=== PATIENT | male | born 1940 | race Caucasian/White ===

== ENCOUNTER 2016-11-24 05:07 | Inpatient (IN) | payer MEDICARE, OTHER ==
[~2016-11-24] VITALS: Ht 170.2 cm; Wt 69.8 kg
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
--- NOTE | ~2016-11-24 | CATH ---
Demographics Patient Name SRIDHAR Frank Gender Male Date of 1940 Age 76 year(s) Patient Number [id number] Date of Study 11/26/2016 Visit Number [id number] Room Number G6[address] [place] [id number] Ht 170.18 cm Wt 78.02 kg Referring Angelo Primary Physician Physician Leyla GANDHI Performing Angelo Secondary Physician Physician Leyla GANDHI Diagnostic Angelo Assisting Physician Physician Leyla GANDHI Interventional Physician Buildings And Grounds Superintendent Physician Findings and Conclusions Diagnostic Findings and Conclusion Calcification involving proximal coronaries. LVEDP 16. No gradient across aortic valve. Severe [address] v CAD. Diagnostic Recommendations CT Surgery consult. Peripheral Findings and Conclusions Normal bilateral renal arteriogram: normal. Peripheral Recommendations Procedure Description The patient was brought to the diagnostic cardiac catheterization-EP laboratory in the fasting, non-sedated state. Informed consent was obtained in the written and verbal form after the risks and benefits were explained. The patient had no further questions and agreed to proceed. The planned puncture-incision site(s) were shaved and prepped with ChloraPrep and draped in the usual sterile manner. Conscious sedation, supplemental oxygen, and pain control medications were delivered by a registered nurse under physician guidance. Surface ECG rhythm, blood pressure measurement, and pulse oximetry were monitored throughout the procedure. Arterial access. The access site was infiltrated with lidocaine. The vessel was entered with the Seldinger technique. A sheath was advanced into the vessel and used for catheter placement. Selective left coronary angiography. A catheter was advanced into the left coronary vessel ostium under Fluoroscopic guidance. Contrast was injected by hand. Images were obtained in multiple projections. Selective right coronary angiography. A catheter was advanced into the right coronary vessel ostium under fluoroscopic guidance. Contrast was injected by hand. Images were obtained in multiple projections. Left heart catheterization. A catheter was advanced across the aortic valve to the left ventricle under fluoroscopic guidance. Resting hemodynamics were obtained. Selective Renal Angiography: Under fluoroscopic guidance a catheter was placed. Contrast was injected and images were obtained. Arterial artery hemostasis was achieved. The patient was transferred to a regular nursing floor via cart accompanied by a nurse. The patient left the laboratory in stable condition. Diagnostic Cath Status: Urgent Procedure Procedure Type Diagnostic procedure:Angiography:, Coronary Angios w/LHC Peripheral Cath Diagnostic Procedure:Renal Angiography:, Right Indications: Abnormal Stress Test and Elevated Troponin. The procedure was explained in detail to the patient. Risks, complications and alternative treatments were reviewed. Written consent was obtained. Medications Reviewed with Patient prior to Procedure. Angiographic Findings Dominance: Right Cardiac Arteries and Lesion Findings LMCA: Diffuse irregularity.Mild diffuse disease. LAD: Lesion on Prox LAD: 80% stenosis . Lesion on 1st Dia% stenosis . LCx: Lesion on Prox CX: 70% stenosis . Lesion on 1st Ob Ingris% stenosis . Lesion on 3rd Ob Ingris% stenosis . RCA: PDA LALY 2 flow. Lesion on Prox RCA: 80% stenosis . Lesion on Mid RCA: 50% stenosis . Lesion on Dist RCA: Proximal subsection.75% stenosis . Lesion on Dist RCA: Distal subsection.99% stenosis . Lesion on 1st RPL: 100% stenosis . Coronary Tree Procedure Data Procedure Date Date: 11/26/2016Start: 03:36 PMEnd: 04:39 PM Entry Locations - Retrograde Percutaneous access was performed through the Right Femoral artery (Primary location). A 6 Fr sheath was inserted. Hemostasis was successfully obtained using Manual Compression. Closure Comments: Pressure held by RT Eleazar for 25 minutes.. Procedure Medications Order and Administration + + +-------+ + !Time !Medication !Dosage !Route ! + + +-------+ + !11/26/2016 03:38 PM !Fentanyl !25 mcg !I.V. ! + + +-------+ + !11/26/2016 03:38 PM !0.9% NaCl ! !I.V. drip ! + + +-------+ + Devices Used - A6 Fr. BS JR 4 Diag. Catheterwas used for:Right coronary angiography. - A6 Fr. BS JL 4 Diag. Catheterwas used for:Left coronary angiography. - A6 Fr. BS JR 4 Diag. Catheterwas used for:Right renal. Contrast Material - Isovue [id number] ml Fluoroscopy Time: Diagnostic: 6:36 minutes. Total: 6:36 minutes. Fluoroscopy Dose: Diagnostic: 1648 mGy. Total: 1648 mGy. Estimated Blood Loss: 20 ml. Medical History Performed Procedures and Imaging Results - Stress testing with SPECT MPIwas performed. Results were: Positive. Risk/Extent of ischemia was: High risk. Allergies - Penicillin. - Sulfa. - Other:(betadine). - Penicillin. - Sulfa. - Other:(Betadine). Risk Factors The patient risk factors include:prior PCI;treated hypercholesterolemia, hypertension, family history of premature CAD, insulin-treated diabetes mellitus, chronic lung disease, last creatinine: 1 mg/dl, creatinine clearance: 67.18 ml/min, dyslipidemia, Current/Recent(w/in 1 year) tobacco use and prior [place] . Admission Data Admission Date: 11/24/2016 Admission Time: 06:11 AM Admit Source: Emergency department Insurance Payors: Medicare. Admission Medications + +------+------+---------+---------+ + + !Medication !Dosage!Times !Last !Last !Administered !Comments ! ! ! !Per !Delivery !Delivery ! ! ! ! ! !Day !Date !Time ! ! ! + +------+------+---------+---------+ + + !Aspirin (any) ! ! ! ! !Yes ! ! + +------+------+---------+---------+ + + !Low Molecular ! ! ! ! ! ! ! !Weight Heparin! ! ! ! ! ! ! !(any) ! ! ! ! ! ! ! + +------+------+---------+---------+ + + !DAVID Inhibitor ! ! ! ! !Yes ! ! !(any) ! ! ! ! ! ! ! + +------+------+---------+---------+ + + !Beta Estefani ! ! ! ! !Yes ! ! !(any) ! ! ! ! ! ! ! + +------+------+---------+---------+ + + Clinical Evaluation Leading to Procedure - The patient's CAD presentation was assessed as: Unstable angina. - The patient's anginal syndrome during the past two weeks was assessed as: Class IV according to the [place] Cardiovascular Society Classification System (CCS). Anti-anginal medications were prescribed during the past two weeks. The medications are: Beta Blockers and Long Acting Nitrates. Hemodynamics Condition: Rest O2 Consumption: Estimated: 221.26Heart Rate: 75 bpm Pressures (mmHg) +-----+ + !Site !Pressure ! +-----+ + !LV !154/24 ,14 ! +-----+ + !LV !163/11 ,18 ! +-----+ + !AO !148/72 (102) ! +-----+ + !LV !166/13 ,17 ! +-----+ + !AO !161/75 (110) ! +-----+ + !AO !169/75 (112) ! +-----+ + Valve Gradients and Areas + +---------+---------+---------+ +---------+ + !Valve !Peak !Mean !Area !Index !Flow !Source ! + +---------+---------+---------+ +---------+ + !Aortic !19 !15 ! ! ! ! ! + +---------+---------+---------+ +---------+ + !Aortic !19 !15 ! ! ! ! ! + +---------+---------+---------+ +---------+ + Shunts Oxygen Values O2 Capacity 152.32 O2 Consumption 221.26 Signatures dtt: Leyla Stephens: 11/26/16 1536 Physician Self Edit
--- NOTE | ~2016-11-24 | ECHO ---
Transthoracic Echocardiography Report (TTE) Demographics Patient Name DARYL WALLER Date of Study 11/24/2016 Patient Number [id number] Visit Number [id number] Date of 1940 Room Number G6202 Gender Male Number Age 76 year(s) Referring Truck Safety Inspector Lucie RVT, RDCS Physician Blanca Physician Interpreting Angelo Mayer MD Dump Grader Physician Supervising Ordering Marielos Fitzgerald MD, MD/MLP Physician Nurse Stress Side Framer Conclusions Contractility Score Summary Hypokinesis of the Mid mayank-septal segment. Summary The estimated left ventricular ejection fraction is 60-65% with normal WM and internal dimension.Mild concentric left ventricular hypertrophy. Mild tricuspid regurgitation by color Doppler. There is mild pulmonary hypertension. The pulmonary pressure (RVSP) is 36 mmHg. Procedure Type of Study TTE procedure:2D Echocardiogram, M-Mode, Doppler , Color Doppler. Procedure Date Date: 11/24/2016 Start: 01:14 PM Study Location: Inpatient Portable Technical Quality: Adequate visualization Indications:Elevated Troponin and Respiratory Arrest. Appropriate Use Criteria: 9 Patient Status: Routine HR: 98 bpm BP: 176/82 mmHg M-Mode/2D Measurements LV Diastolic Dimension: 4 cm LV Systolic Dimension: 2.74 cm LV Septum Diastolic: 1.35 cm LV PW Diastolic: 1.23 cm AO Root Dimension: 3 cm Cardiac Output: 9.57 l/min AV Cusp Separation: 2 cm RV Diastolic Dimension: 3.1 cm LA volume: 32 ml LVOT: 2.4 cm RV Base: 1.81 cm LVOT VTI: 21.6 cm RV Mid: 1.65 cm LV Stroke volume: 97.67 ml TAPSE: 3.09 cm TDI-S': 15.9 cm/s Doppler Measurements AV Peak Velocity: 0.95 m/s MV Peak E-Wave: 0.83 m/s AV Peak Gradient: 3.63 mmHg MV Peak A-Wave: 1.03 m/s AV Mean Gradient: 2 mmHg MV E/A Ratio: 0.81 LVOT Peak Velocity: 0.87 m/s MV P1/2t: 29 msec TR Gradient:33.18 mmHg PV Peak Velocity: 1.06 m/s Estimated RAP:3 mmHg PV Peak Gradient: 4.49 mmHg Estimated RVSP: 36 mmHg Estimated PASP: 36.18 mmHg E' Lateral Velocity: 0.07 m/s A' Lateral Velocity: 0.13 m/s Findings Left Ventricle Mild concentric left ventricular hypertrophy with normal internal dimension,EF and WM. Right Ventricle Normal right ventricle structure and function. Left Atrium Normal left atrial size. Right Atrium Normal right atrial size. Mitral Valve Trivial mitral regurgitation by color Doppler. Aortic Valve Normal aortic valve structure and function. Tricuspid Valve Mild tricuspid regurgitation by color Doppler. There is mild pulmonary hypertension. The pulmonary pressure (RVSP) is 36 mmHg. Pulmonic Valve The pulmonic valve is not well visualized. Pericardial Effusion No evidence of pericardial effusion. Miscellaneous Visualized portions of the aortic root and ascending aorta appear normal in size. Pleural Effusion No evidence of pleural effusion. Contractility Score LV regional wall motion:(0-Non visualized 1-Normal 2-Hypokinesis 3-Akinesis 4-Dyskinesis 5-Aneurysm) Signature dtt: Leyla Stephens dtd: 11/24/16 1314 Physician Self Edit
--- NOTE | ~2016-11-24 | ESTC ---
Cardiac Perfusion Imaging Demographics Patient Name SRIDHAR Frank Gender Male Patient Number [id number] Race Visit Number [id number] [place] [id number] Room Number G6304 Accession Number [id number] Height 67 inches Date of 1940 Weight 172 pounds Physician MD Marielos Fitzgerald MD [facility] Interpreting Angelo Mayer Date of study 11/25/2016 Physician Supervising Kirdebbyan Leyla NM Rowena Heredia MD/WILMAR GANDHI Technologist Ordering Kirdebbyan Leyla Stress Rothenberger RVT, Physician mechanical laboratory technician RDCS Blanca Stress ECG Angelo Mayer Nurse Jonh Frank RN Reading Physician The procedure was explained in detail to the patient. Risks, complications and alternative treatments were reviewed. Written consent was obtained. Medications Reviewed with Patient prior to Procedure. Procedure Admit Source:Emergency department. Procedure Type: Nuclear Stress Test:Pharmacological, Cardiolite Stress Test Procedure Start time: 11/25/2016 10:20 Indications: Elevated cardiac enzymes. Risk Factors The patient risk factors include:prior PCI;Current/Recent(w/in 1 year) tobacco use, treated hypercholesterolemia, family history of premature CAD, insulin treated diabetes mellitus, chronic lung disease, last creatinine: 1 mg/dl, dyslipidemia, prior [place] and creatinine clearance: 67.18 ml/min. Conclusions Summary Flash pulmonary edema with Lexiscan. EKG: No ischemia. Large distal anterior,apical and distal inferior fixed defect most consistent with soft tissue attenuation. LVEF: 45%. Apical akinesia. Stress Protocols Resting ECG RSR. Pre-stress physical exam: Un changed. Predicted HR: 142 bpm ECG Findings No ECG changes suggestive of ischemia. Arrhythmias No rhythm abnormality. Symptoms [place] awful with lexiscan.Developed abdominal pain,worsening SOB,hypoxia,sinus tachycardia,severe systolic HTN most consistent with flash pulmonary edema.Treated with oxygen, IV NTG,IV lasix,IV MS and nebulized bronchodilators.Patient slowly improved over the next 90 mins or so. Stress Interpretation After Lexiscan was administered patient's heart rate and blood pressure had returned to baseline. A few minutes later, the patient complained of stomach pain and nausea and requested to stand up. We helped the patient stand up and Zofran was given. The patient's blood pressure went to 224/108 and he started getting short of breath and agitated. I called respiratory therapy to come and give another breathing treatment. A breathing treatment was administered with no improvement. The patient got more agitated and began to wheeze audibly. His SpO2 dropped down to 34%. Respiratory therapy put the patient on 15 L non rebreather and I gave Lasix, metoprolol, nitro, and morphine. Several doses were given and the patient was monitored closely until he became stable enough to transport to ICU. The patient's SpO2 was holding at 95% to 100% and his SBP was in the 120- 160's when he was transfered. Imaging Results Applied corrections - Motion correction applied High risk findings Summed scores - Summed stress score: 13 - Summed rest score: 17 - Summed difference score: -4 Stress ejection Ejection fraction:45 % EDV :120 ml ESV :66 ml Stroke volume :54 ml LV mass :151 gr LV size:Normal LV systolic function impairment: Mild Imaging Protocols Rest Stress Isotope:Tc99m Sestamibi IV Isotope: Tc99m Sestamibi IV Isotope dose:12.7 mCi Isotope dose:38.3 mCi Date:11/25/2016 09:04 Date:11/25/2016 10:58 Technique: SPECT Technique: Gated Supine SPECT Supine IV remains in place after procedure. Scan Time:45-60 minutes post injection Procedure Medications - Regadenoson (Lexiscan) 0.4 mg IV over 10-15 sec. I.V. 0.4 mg. - m I.V. 4 mg. - Aminophylline 50 mg IV I.V. 125 mg. - Nitroglycerin Drip (25mg/250ml D5W) I.V. drip 5 mcg/min. - Nitroglycerin Drip (25mg/250ml D5W) I.V. drip 10 mcg/min. - Nitroglycerin Drip (25mg/250ml D5W) I.V. drip 15 mcg/min. - Nitroglycerin Drip (25mg/250ml D5W) I.V. drip 20 mcg/min. - Lasix I.V. 20 mg. - Lasix I.V. 20 mg. - Morphine I.V. 1 mg. - Metaprolol I.V. 1 mg. - Metaprolol I.V. 1 mg. - Metaprolol I.V. 1 mg. - Lasix I.V. 20 mg. - Morphine I.V. 1 mg. - Metaprolol I.V. 1 mg. Medications administered per verbal order and read back to physician prior to administration. Medical History Other Previous Procedures + +----+-------+ !Test name !Date!Remarks! + +----+-------+ !Stress testing with SPECT MPI ! ! ! + +----+-------+ Admission Medications + +------+ +--------+-------+---------+ !Name !Dosage!Times per !Start !Stop !Details ! ! ! !day !date !date ! ! + +------+ +--------+-------+---------+ !Aspirin (any) ! ! ! ! ! ! + +------+ +--------+-------+---------+ !Low Molecular Weight Heparin! ! ! ! ! ! !(any) ! ! ! ! ! ! + +------+ +--------+-------+---------+ !DAVID Inhibitor (any) ! ! ! ! ! ! + +------+ +--------+-------+---------+ !Beta Estefani (any) ! ! ! ! ! ! + +------+ +--------+-------+---------+ Admission Data Admission date: 11/24/2016 Admission Time: 06:11 Hospital Status: Inpatient. Signatures dtt: Leyla Stephens dtd: 11/25/16 1020 Physician Self Edit
--- NOTE | ~2016-11-24 | DS ---
PATIENT'S NAME: DARYL WALLER [facility] AGE: 76 Y [address] ROOM: [address] [address] LOCATION: GPCU ADMIT DATE: 11/24/2016 Discharge Summary DISCHARGE DATE: 12/04/2016 FAMILY PHYSICIAN: PHYSICIAN, NO ATTENDING PHYSICIAN: Hamlet Arceo PROCEDURE: Percutaneous coronary intervention x4. DISCHARGE DIAGNOSES: 1. Acute on chronic hypoxic respiratory failure. 2. Severe chronic obstructive pulmonary disease, FEV1 20%. 3. Three-vessel coronary artery disease, status post percutaneous coronary intervention x4. 4. Flash pulmonary edema during stress test. 5. Acute delirium, resolving. 6. Urinary tract infection, treated on 12/04/2016. REASON FOR ADMISSION: The patient collapsed at a hotel in town, was apneic, but did not lose pulse, got artificial respirations from his daughter while waiting for ambulance, and actually I do not believe this was narcotic overdose, although, he is off his pain medications at this time, I think that was more secondary to coronary artery disease, impossible to tell at this point. LABORATORY DATA: Bedside fingerstick glucoses have been anywhere from 61 to 302, but the average has been good. Chemistries: Initial pCO2 was high with PO2 down at 67 and a pH of 7.4, that was corrected with intubation and ventilation quickly and he did not remain on the ventilator long. Last electrolytes: Sodium 142, potassium 4.0 with a normal CO2 and anion gap. BUN and creatinine have returned to normal. Creatinine went up to a max of 1.5, it is as I said that is returning normal at 1.2. His albumin is low at 2.8. Liver function tests were all normal. He had one proBNP on December 02, which was 1221. CRP elevated at 2.94 on November 24. TSH was normal on November 24 at 3.0. Hematology: Last white count was 10.0 with hemoglobin of 11.6. He had a high white count of 12.1 on the . UA done today showed 10-20 white cells with a full field of rbc's and only 0-2 epithelials. No bacteria were noted. PE protocol CT on November 24 showed no evidence of pulmonary embolus, but severe end-stage emphysematous changes bilaterally with right bibasilar opacifications consistent with atelectasis and a small right pleural effusion. Last chest x-ray showed stable appearance on November 30 with bibasilar opacities suggestive of edema or atelectasis. Blood cultures were negative. Respiratory culture showed moderate yeast and grew out Lilly albicans. HOSPITAL COURSE: It was one of up and down improvement with regard to his delirium. His CAD was taken care of definitively, but he will continue to PATIENT'S NAME: DARYL WALLER [facility] AGE: 76 Y [address] ROOM: [id number] [place] [id number] LOCATION: GPCU ADMIT DATE: 11/24/2016 Discharge Summary DISCHARGE DATE: 12/04/2016 FAMILY PHYSICIAN: PHYSICIAN, NO ATTENDING PHYSICIAN: Hamlet Arceo suffer from his severe COPD and his prognosis is guarded secondary to that. I spoke with Dr. Stafford at [facility], who will accept him as a swing bed patient there. Note that this discharge process took greater than 30 minutes. Reference is made to progress notes in the chart today. SOPHY ROSEN MD CCMonika/modl /[id number] CC: Ernst Stafford MD d: 12/05/16 0157 t: 12/06/16 1659, DISCHARGE SUMMARY
--- NOTE | ~2016-11-24 | CON ---
PATIENT'S NAME: DARYL TORRES [facility] AGE: 76 Y [address] ROOM: [id number] [place], [place] [address] LOCATION: CU ADMIT DATE: 11/24/2016 Consultation DISCHARGE DATE: FAMILY PHYSICIAN: PHYSICIAN, NO ATTENDING PHYSICIAN: SARAH RICHARD DATE OF CONSULTATION: 11/24/2016 HISTORY OF PRESENT ILLNESS: Mr. Torres is a 76-year-old male patient who was hospitalized on the 11/24/2016 with acute respiratory failure. He woke up in a hotel room where he was staying with his and daughter for a function. He woke up and had trouble breathing. He increased his nocturnal oxygen level from 1 L to 2 L and shortly after that, stopped breathing. His daughter started to give him some resuscitation in the form of qllgl-em-zbnti respiration. His pulse was never lost. The project manager process development arrived and they were also able to tell that his blood pressure and pulse were okay and he was transported to the emergency room. He was initially intubated and later extubated. His troponins are up a little bit which is the main reason for consultation. At least, he has a combination of COPD and because of the retention of pCO2, possible additional drug overdose effect were also implicated. His echo showed normal ejection fraction with mild LVH. His proBNP was elevated. The patient has generally been somewhat short of breath and has been in functional class III lately. He has not had any chest pain per se. There is no history of syncope, lightheaded or ankle swelling. He denies any palpitations. There is no prior history of congestive heart failure, atrial fibrillation, rheumatic fever or heart murmur. The patient has history of hypertension, type 2 diabetes, elevated cholesterol, and he is an ex-smoker. There is no family history of premature coronary artery disease that he knows of. CURRENT MEDICATIONS: His current list of medications are: 1. Aspirin 81 mg a day. 2. Ertapenem 100 mg IV once a day. 3. Levofloxacin 150 mg a day IV. 4. Ipratropium bromide. 5. Isosorbide dinitrate 10 mg t.i.d. 6. Gabapentin 300 t.i.d. 7. Guaifenesin 600 b.i.d. 8. Metoprolol 50 b.i.d. 9. Insulin. 10. Bupropion 150 b.i.d. PATIENT'S NAME: DARYL TORRES [facility] AGE: 76 Y [address] ROOM: [id number] [place], [place] [address] LOCATION: [facility] ADMIT DATE: 11/24/2016 Consultation DISCHARGE DATE: FAMILY PHYSICIAN: PHYSICIAN, NO ATTENDING PHYSICIAN: SARAH RICHARD 11. Lisinopril 2.5 daily. 12. Levothyroxine. 13. Famotidine. 14. Cholecalciferol. 15. Atorvastatin 40 mg a day. 16. Enoxaparin 40 mg a day. 17. Fentanyl. ALLERGIES: PENICILLIN AND SULFA. PAST MEDICAL HISTORY: 1. COPD. 2. History of 2 MIs in the past with 1994 and 1998. He had a stent to his coronary artery at that time. 3. History of chronic hypoxic respiratory failure. 4. History of tobacco abuse. 5. Fibromyalgia. 6. Hypothyroidism. 7. Rotator cuff tear. 8. Right shoulder surgery. 9. Pneumonia. 10. DJD. 11. Appendectomy. 12. Multiple fractures. SOCIAL HISTORY: The patient is . He denies abusing alcohol. He is not currently smoking. His appetite and weight are stable. Sleep is fair. FAMILY HISTORY: No premature coronary artery disease. REVIEW OF SYSTEMS: 1. Generalized aches and pains. 2. Cough with wheezing. 3. Difficulty with urination off and on. 4. No history of GI or bleed. PHYSICAL EXAMINATION: VITAL SIGNS: On examination, his blood pressure is 130/80, heart rate is in the 60s and 70s regular, respiration is 18, afebrile. HEENT: Normal. NECK: Supple with no JVD, thyromegaly, lymphadenopathy or carotid bruit. HEART: PMI is not well located. First and second heart sounds are regular. PATIENT'S NAME: DARYL TORRES [facility] AGE: 76 Y [address] [place]OM: [id number] [address] LOCATION: GICU ADMIT DATE: 11/24/2016 Consultation DISCHARGE DATE: FAMILY PHYSICIAN: PHYSICIAN, NO ATTENDING PHYSICIAN: SARAH RICHARD There are no added sounds or murmurs. CHEST: Revealed some wheezing scattered all through the lung mendoza. He has some crackles in the bases as well. ABDOMEN: Obese, soft. EXTREMITIES: Reveal no edema. CENTRAL NERVOUS SYSTEM: Intact. ASSESSMENT: 1. Pulmonary edema. 2. Chronic obstructive pulmonary disease. 3. Ftu-ZD-wetkrmmey myocardial infarction this time. 4. History of 2 myocardial infarctions in the past and history of percutaneous coronary intervention in the past. 5. Type 2 diabetes. 6. Normal renal function. RECOMMENDATION: Lexiscan/Cardiolite study first and then followup. Again, I appreciate this opportunity to participate in the care of Mr. Torres. MD BIRDIE JOY/ricky /[id number] d: 11/26/16 0001 t: 11/27/16 1226, CONSULTATION REPORT
--- NOTE | ~2016-11-24 | HP ---
PATIENT'S NAME: DARYL WALLER [facility] AGE: 76 Y [address] ROOM: [place] [address] LOCATION: GICU ADMIT DATE: 11/24/2016 History & Physical DISCHARGE DATE: FAMILY PHYSICIAN: PHYSICIAN, NO ATTENDING PHYSICIAN: SARAH RICHARD DATE OF SERVICE: CHIEF COMPLAINT: Respiratory arrest. HISTORY OF PRESENT ILLNESS: A 76-year-old gentleman with a past medical history of chronic obstructive pulmonary disease, on 1 L of oxygen at home, history of fibromyalgia on unknown dose of morphine as well as breakthrough pain, was in a motel with his . He woke up this morning to go to the bathroom and he complained that he is having trouble breathing. EMS was called and before EMS could arrive, he stopped breathing and went unresponsive. His daughter tried to do mouth-to- mouth breathing and they had a pulse all the time. EMS found him in to be respiratory arrest, and intubated in the field and brought to the emergency department. On my encounter, he is intubated 1 dose of 0.2 mg of Narcan has been given. He is awake and he is following commands. Per daughter, his only complaint was this trouble breathing last night. He did not complain of any chest pain, any shortness of breath, any headache, any trouble with the eyes, any abdominal pain, but did endorse that he has been having diarrhea for past couple of days. He did not endorse having leg swelling in the past couple of days as well. REVIEW OF SYSTEMS: All other systems were reviewed and were negative except what is mentioned in the HPI. ALLERGIES: THE PATIENT IS ALLERGIC TO PENICILLIN, SULFA, AND BETADINE. PAST MEDICAL HISTORY: COPD on 1 L of oxygen at home, hypertension, insulin-dependent diabetes mellitus, coronary artery disease, fibromyalgia, on heavy doses of narcotics. MEDICATIONS: Medications are being reconciled right now. SOCIAL HISTORY: Lifelong smoker; currently, smokes. PATIENT'S NAME: DARYL WALLER [facility] AGE: 76 Y [address] ROOM: [place] [address] LOCATION: GICU ADMIT DATE: 11/24/2016 History & Physical DISCHARGE DATE: FAMILY PHYSICIAN: PHYSICIAN, NO ATTENDING PHYSICIAN: SARAH RICHARD FAMILY HISTORY: Reviewed and were irrelevant to the presenting problem. PHYSICAL EXAMINATION: VITAL SIGNS: Blood pressure 162/114, respiratory rate of 19, satting 99%, and heart rate of 94. GENERAL: In mild acute distress due to intubation, wakes up to the commands. Following commands. No weakness noted in any of the extremities. HEENT: Head: Atraumatic, normocephalic. Eyes: Nonicteric. No pallor. Oropharynx: Moist mucous membranes. CARDIOVASCULAR: S1, S2. No murmurs, gallops, rubs. LUNGS: Clear to auscultation bilaterally. ABDOMEN: Soft, nontender, nondistended. Bowel sounds present. EXTREMITIES: No clubbing, cyanosis, or edema. PSYCHIATRIC: Cannot be assessed at this point. ENDOCRINE: No cushingoid features or myxedema noted. LYMPHATICS: No lymphadenopathy or lymphangitis noted. MUSCULOSKELETAL: No muscle tenderness or joint swelling noted. LABORATORY DATA: EKG done in the emergency department showed sinus rhythm without any acute ST- T wave changes. Q-waves are present in V2 and V3. Troponin 1st set has been negative. ABG initially done in the emergency department showed respiratory acidosis with a pH of 7.25 and a pCO2 of 68 and that was on intubation. Repeat ABG showed improved pH of 7.33, pCO2 of 58, pO2 of 74, FiO2 of 40. Procalcitonin level is negative. CBC and CMP were unremarkable. Lactate was elevated at 4.5. D-dimer was elevated at 1.[address] of the chest with a PE protocol was done, which per my read does not show any big pulmonary emboli to explain this. There is no significant infiltrate and consolidation noted. ASSESSMENT: 1. Respiratory arrest, secondary to drug overdose. 2. Narcotic overdose. 3. Bpgat-fk-zvtkqqz hypoxic and hypercapnic respiratory failure. 4. Chronic obstructive pulmonary disease. 5. Hypertension. 6. Coronary artery disease. 7. Insulin-dependent diabetes mellitus. PLAN: We are going to admit this patient to the ICU. Currently, he is mechanically ventilated. We gave him 1 dose of Narcan, which did increase his alertness as well as the respiratory rate more than the ventilator. His ABGs have improved. We will stop all the sedation and continue with the assessment for the extubation. We will repeat the ABG at this point. No antibiotics are PATIENT'S NAME: DARYL WALLER [facility] AGE: 76 Y [address] ROOM: [place] [address] LOCATION: [facility] ADMIT DATE: 11/24/2016 History & Physical DISCHARGE DATE: FAMILY PHYSICIAN: PHYSICIAN, NO ATTENDING PHYSICIAN: SARAH RICHARD indicated at this point. We will get a urine drug screen. Gave him 1 L of IV bolus. Given the normal neurological exam and without any overt weakness, we will not do a CAT scan of the head at this point. Mild sliding scale insulin. We will get HbA1c, p.r.n. antihypertensives for blood pressure. He is full code. DVT prophylaxis with Lovenox. We will follow this patient. MD DILAN PEREZ/ricky /[id number] D: [id number] T: [id number] HISTORY & PHYSICAL
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
--- NOTE | ~2016-11-24 | PUL ---
PATIENT'S NAME: DARYL WALLER [facility] AGE: 76 Y [address] ROOM: [place] [address] LOCATION: GPCU ADMIT DATE: 11/24/2016 Pulmonary DISCHARGE DATE: FAMILY PHYSICIAN: PHYSICIAN, NO ATTENDING PHYSICIAN: SARAH RICHARD NAME OF PROCEDURE: Bedside Spirometry DATE OF PROCEDURE: November 27, 2016 TECH: TBemily, LASERIST REASON FOR EXAM: Pre-surgical evaluation PROCEDURES PREFORMED: Spirometry with bronchodilator assessment RESULTS: Spirometry shows the pre bronchodilator FVC was 0.67 liters which is 19% of predicted. And the post bronchodilator FVC was 0.64 liters. The pre bronchodilator FEV1 was 0.52 liters which is 20% of predicted, and the post bronchodilator FEV1 was 0.64 liters which is 25% of predicted. FEV1/FVC ratio was 77% or 107% of predicted. PHYSICIAN INTERPRETATION: The flow volume loop pattern suggest restrictive pattern. The above data under flow volume loop suggests restrictive pattern further examination with measurement of the lung volumes would be recommended. There was no significant change following an inhaled bronchodilator as suggested by the post bronchodilator measurement. MD DENG FARRAR/ghassan /[id number] dtt: 11/29/16 1646 , JAYLEN LOPEZ dtd: 11/29/16 0954
--- NOTE | ~2016-11-24 | CATH ---
Cardiac Interventional Report Demographics Patient Name SRIDHAR Frank Gender Male Date of 1940 Age 76 year(s) Patient Number [id number] Date of Study 11/28/2016 Visit Number [id number] Room Number G6[address] [place] [id number] Ht 170.18 cm Wt 78.02 kg Referring Marielos Fitzgerald Primary Physician Physician Performing Angelo Secondary Physician Physician Leyla GANDHI Diagnostic Assisting Physician Physician Interventional Angelo Physician [employer] Salesperson Physician Leyla GANDHI Findings and Conclusions Interventional Findings and Conclusion LAD prox 75-80% to 0% with LALY 3 flow.One PIA. LCx IFR 0.94 RCA 3 PIA proximal mid and distal. LALY 3 flow distal, initally LALY 1-2 flow Interventional Recommendations Routine post-coronary intervention care. Procedure Description The patient was brought to the diagnostic cardiac catheterization-EP laboratory in the fasting, non-sedated state. Informed consent was obtained for a planned PCI in the written and verbal form after the risks and benefits were explained. The patient had no further questions and agreed to proceed. The planned puncture-incision site(s) were shaved and prepped with ChloraPrep. After a three minute dry time the patient was draped in the usual sterile manner. Conscious sedation and pain control medications were delivered by a registered nurse under physician guidance. Surface ECG rhythm, blood pressure measurement, supplemental oxygen, and pulse oximetry were monitored throughout the procedure. Arterial access. The access site was infiltrated with lidocaine. The vessel was entered with the Seldinger technique. A sheath was advanced into the vessel and used for catheter placement. Stent Placement: A guiding catheter was used to intubate the vessel. A 0.14 wire was used to cross the lesion. A Drug Eluting Stent was placed in the LAD Post placement angiograms were performed. FFR measurement was performed of the left circumflex. The vessel was entered with a guiding catheter. The FFR wire was normalized and then advanced across the lesion. Maximum hyperemia was achieved using adenosine. Stent Placement: A guiding catheter was used to intubate the vessel. A 0.14 wire was used to cross the lesion. A Drug Eluting Stent was placed in the distal RCA. Post placement angiograms were performed. Stent Placement: A guiding catheter was used to intubate the vessel. A 0.14 wire was used to cross the lesion. A Drug Eluting Stent was placed in the distal RCA just proximal and overlapping with the most distal stent. Post placement angiograms were performed. Stent Placement: A guiding catheter was used to intubate the vessel. A 0.14 wire was used to cross the lesion. A Drug Eluting Stent was placed in the proximal RCA. Post placement angiograms were performed. Hemostasis: The sheath(s) was removed. Perclose(s) were tied and hemostasis was achieved. The patient was transferred to the nursing floor with continuous monitoring via cart accompanied by a nurse. The patient left the laboratory in stable condition. Interventional Cath Status: Urgent Procedure Procedure Type PCI procedure:Drug Eluting Coronary Stent:, LAD, RCA, Additional Imaging:, FFR/iFR:, Initial Vessel Indications: Respiratory Arrest and Unstable angina. The procedure was explained in detail to the patient. Risks, complications and alternative treatments were reviewed. Written consent was obtained. Medications Reviewed with Patient prior to Procedure. Angiographic Findings Dominance: Right Cardiac Arteries and Lesion Findings LAD: Lesion on Prox LAD: 80% stenosis reduced to 0%. Pre procedure LALY II flow was noted. Post Procedure LALY III flow was present. The guidewire cross was successful.The lesion was diagnosed as a high risk lesion.Culprit lesion. Devices used - Luge Wire .014 x 182. Number of passes: 1. - Emerge Balloon 3.0 x 8. 1 inflation(s) to a max pressure of: 18 manju. - Promus Premier 4.0 x 12 Stent. 1 inflation(s) to a max pressure of: 12 manju. LCx: Lesion on Mid CX: FFR + + + + !FFR !Stage/Medication !Dosage ! + + + + !0.94 ! ! ! + + + + Devices used - PlanStanrata Pressure Wire. Number of passes: 1. RCA: Lesion on Dist RCA: 99% stenosis reduced to 0%. Pre procedure LALY 0 flow was noted. Post Procedure LALY III flow was present. The guidewire cross was successful.The lesion was diagnosed as a high risk lesion.Culprit lesion. Devices used - Promus Premier 3.0 x 12 Stent. 1 inflation(s) to a max pressure of: 16 manju. Lesion on Mid RCA: 75% stenosis reduced to 0%. Pre procedure LALY II flow was noted. Post Procedure LALY III flow was present. The guidewire cross was successful. Devices used - Fielder XT 190 cm. Number of passes: 1. - Emerge Balloon 2.5 x 15. 2 inflation(s) to a max pressure of: 6 manju. - Promus Premier 2.5 x 24 Stent. 1 inflation(s) to a max pressure of: 15 manju. - Promus Premier 2.75 x 16 Stent. 1 inflation(s) to a max pressure of: 17 manju. Lesion on Prox RCA: 80% stenosis reduced to 0%. Pre procedure LALY II flow was noted. Post Procedure LALY III flow was present. The guidewire cross was successful.The lesion was diagnosed as a high risk lesion. Coronary Tree Procedure Data Procedure Date Date: 11/28/2016Start: 04:25 PMEnd: 06:24 PM Entry Locations - Retrograde Percutaneous access was performed through the Right Femoral artery (Primary location). A 7 Fr sheath was inserted. Hemostasis was successfully obtained using Perclose ProGlide (Liu). Closure Comments: By Teresita Chowdhury. Procedure Medications Order and Administration + + + + + !Time !Medication !Dosage !Route ! + + + + + !11/28/2016 04:15 PM !Oxygen !3 l/min !NC ! + + + + + !11/28/2016 04:20 PM !Oxygen !2 l/min !NC ! + + + + + !11/28/2016 04:22 PM !Oxygen !2 l/min !NC ! + + + + + !11/28/2016 04:26 PM !Versed !1 mg !I.V. ! + + + + + !11/28/2016 04:26 PM !Fentanyl !25 mcg !I.V. ! + + + + + 11/28/2016 04:32 PM !Heparin (ACC_3) !7500 units !I.V. bolus ! + + + + + 11/28/2016 04:37 PM !Aggrastat (Tirofiban) !1.875 mg !I.V. bolus ! + + + + 11/28/2016 04:40 PM !Aggrastat (Tirofiban) !0.15 mcg/kg/min !I.V. drip ! + + + + + 11/28/2016 04:41 PM !Fentanyl !25 mcg !I.V. ! + + + + + 11/28/2016 05:15 PM !Nitroglycerin !5 mcg/min ! ! + + + + + !11/28/2016 05:26 PM !Nitroglycerin !10 mcg/min !I.V. drip ! + + + + + !11/28/2016 05:30 PM !Oxygen !3 l/min !Mask ! + + + + + !11/28/2016 05:32 PM !Oxygen !5 l/min !Mask ! + + + + + 11/28/2016 05:37 PM !Oxygen !2 l/min !NC ! + + + + + !11/28/2016 05:39 PM !Nitroglycerin !15 mcg/min !I.V. drip ! + + + + + !11/28/2016 05:44 PM !Plavix (ACC_8) !600 mg !P.O. ! + + + + + !11/28/2016 05:50 PM !Baby Aspirin (ACC_4) !324 mg !P.O. ! + + + + + Devices Used - A6 Fr. EBU 3.5 Guide Catheterwas used for:LAD Intervention. - A6 Fr. AL .75 JJ Guide Catheterwas used for:RCA Intervention. Contrast Material - Isovue 317906 ml Fluoroscopy Time: Diagnostic: 21:18 minutes. Total: 21:18 minutes. Fluoroscopy Dose: Diagnostic: 4027 mGy. Total: 4027 mGy. Estimated Blood Loss: 10 ml. Additional [facility] PCI Information PCI Indication:PCI for high risk Non-STEMI or unstable angina. Medical History Performed Procedures and Imaging Results - Stress testing with SPECT MPIwas performed. Results were: Positive. Risk/Extent of ischemia was: High risk. Allergies - Penicillin. - Sulfa. - Other:(betadine). - Penicillin. - Sulfa. - Other:(Betadine). Risk Factors The patient risk factors include:prior PCI;treated hypercholesterolemia, hypertension, family history of premature CAD, insulin-treated diabetes mellitus, chronic lung disease, last creatinine: 1 mg/dl, creatinine clearance: 67.18 ml/min, dyslipidemia, Current/Recent(w/in 1 year) tobacco use and prior [place] . Admission Data Admission Date: 11/24/2016 Admission Time: 06:11 AM Admit Source: Emergency department Insurance Payors: Medicare. Admission Medications + +------+------+---------+---------+ + + !Medication !Dosage!Times !Last !Last !Administered !Comments ! ! ! !Per !Delivery !Delivery ! ! ! ! ! !Day !Date !Time ! ! ! + +------+------+---------+---------+ + + !Aspirin (any) ! ! ! ! !Yes ! ! + +------+------+---------+---------+ + + !Low Molecular ! ! ! ! ! ! ! !Weight Heparin! ! ! ! ! ! ! !(any) ! ! ! ! ! ! ! + +------+------+---------+---------+ + + !DAVID Inhibitor ! ! ! ! !Yes ! ! !(any) ! ! ! ! ! ! ! + +------+------+---------+---------+ + + !Beta Estefani ! ! ! ! !Yes ! ! !(any) ! ! ! ! ! ! ! + +------+------+---------+---------+ + + Clinical Evaluation Leading to Procedure - The patient's CAD presentation was assessed as: Unstable angina. - The patient's anginal syndrome during the past two weeks was assessed as: Class IV according to the [place] Cardiovascular Society Classification System (CCS). Anti-anginal medications were prescribed during the past two weeks. The medications are: Beta Blockers and Long Acting Nitrates. Hemodynamics Condition: Rest O2 Consumption: Estimated: 226.89Heart Rate: 83 bpm Pressures (mmHg) +-----+ + !Site !Pressure ! +-----+ + !AO !150/68 (99) ! +-----+ + Shunts Oxygen Values O2 Capacity 148.24 O2 Consumption 226.89 Discharge Data Discharge Date: 12/04/2016 Hospital Status: Inpatient Signatures dtt: Leyla Stephens dtlinh: 11/28/16 1625 Physician Self Edit
[2016-11-24 05:37] LABS: BASOPHIL % 0.4 %; EOSINOPHIL # 0.2 K/uL (0.0-0.5); EOSINOPHIL % 1.7 %; HEMATOCRIT 40.4 % (37.0-53.0); HEMOGLOBIN 12.8 g/dL (11.0-16.0); IMMATURE GRANULOCYTE # 0.1 K/uL (0.0-0.3); IMMATURE GRANULOCYTE % 0.8 %; LYMPHOCYTE # 3.1 K/uL (0.8-4.0); LYMPHOCYTE % 30.6 %; MCH 30.3 pg (27.0-34.0); MCHC 31.7 gm/dL (32.0-36.5); MCV 95.7 fl (83.0-98.0); MONOCYTE # 0.7 K/uL (0.0-1.0); MONOCYTE % 6.4 %; MPV 9.6 fl (9.4-12.4); NEUTROPHIL # (ANC) 6.2 K/uL (1.4-9.0); NEUTROPHIL % 60.1 %; NRBC % 0 /100WBC (0-0.00); PLATELET COUNT 293 K/uL (150-450); RBC 4.22 M/uL (3.50-5.50); RDW-CV 14.2 % (11.9-14.6); WBC 10.3 K/uL (4.0-11.0)
[2016-11-24 06:04] LABS: INR - (THERAPEUTIC) 1.01 (0.92-1.07); PROTIME 10.6 SECONDS (9.8-11.4); PTT 29 SECONDS (25-32)
[2016-11-24 06:16] LABS: ALBUMIN 2.8 gm/dL (3.5-5.0); ALK PHOS 100 IU/L (33-138); ALT 22 IU/L (12-78); ANION GAP 13.7 (10.0-19.0); AST 20 IU/L (10-40); BLOOD UREA NITROGEN 13 mg/dL (6-24); CALCIUM 8.3 mg/dL (8.5-10.5); CHLORIDE 106 mMol/L (96-110); CO2 26 mMol/L (22-32); CPK 63 IU/L (35-332); CREATININE 1.2 mg/dL (0.6-1.3); POTASSIUM 4.7 mMol/L (3.7-5.1); SODIUM 141 mMol/L (135-145); TOTAL BILIRUBIN 0.3 mg/dL (0.0-1.5); TOTAL PROTEIN 6.3 g/dL (6.0-8.4)
[2016-11-24 06:40] LABS: BICARBONATE 29.8 mmol/L (18.0-23.0); PCO2 68 mmHg (35-45); PO2 241 mmHg (80-90)
[2016-11-24 08:37] LABS: BICARBONATE 30.6 mmol/L (18.0-23.0); LACTATE 1.1 mEq/L (0.50-1.60); PCO2 58 mmHg (35-45)
[2016-11-24 08:38] LABS: PO2 74 mmHg (80-90)
[2016-11-24 09:18] LABS: BILIRUBIN URINE NEGATIVE (NEGATIVE); BLOOD URINE 25 /UL (NEGATIVE); COLOR URINE YELLOW (YELLOW); GLUCOSE URINE 100 mg/dL (NEGATIVE); KETONE URINE NEGATIVE (NEGATIVE); LEUKOCYTES URINE 25 /UL (NEGATIVE); NITRITE URINE NEGATIVE (NEGATIVE); PH URINE 6.5 (4.0-8.0); PROTEIN URINE 15 mg/dL (NEGATIVE); TURBIDITY URINE CLEAR (CLEAR); UROBILINOGEN URINE NORMAL (NORMAL)
[2016-11-24 09:38] LABS: BACTERIA URINE NEGATIVE (NEGATIVE); EPITHELIAL URINE 0-2 #/HPF (NEGATIVE)
[2016-11-24 09:43] LABS: COCAINE NEGATIVE (NEGATIVE); OPIATES POSITIVE (NEGATIVE)
[2016-11-24 09:46] LABS: AMPHETAMINE NEGATIVE (NEGATIVE); BARBITURATE NEGATIVE (NEGATIVE)
[2016-11-24] MEDS ORDERED: TYLENOL325 MG PO (10:09)
[2016-11-24] MEDS ORDERED: PROVENTIL OR V6.7 GM INH (10:09)
[2016-11-24] MEDS ORDERED: ASPIRIN (CHILDR81 MG PO (10:10)
[2016-11-24] MEDS ORDERED: LIPITOR10 MG PO (10:10)
[2016-11-24] MEDS ORDERED: NEURONTIN300 MG PO (10:42)
[2016-11-24] MEDS ORDERED: WELLBUTRIN SR150 MG PO (10:42)
[2016-11-24] MEDS ORDERED: LASIX20 MG PO (10:42)
[2016-11-24] MEDS ORDERED: ALLFEN400 MG PO (10:48)
[2016-11-24] MEDS ORDERED: ISORDIL10 MG PO (10:49)
[2016-11-24] MEDS ORDERED: LEVEMIR100 UNIT/1 SUB-Q (10:52)
[2016-11-24] MEDS ORDERED: LEVOFLOXACIN PO (10:53)
[2016-11-24] MEDS ORDERED: LEVOTHROID (S137 MCG PO (10:54)
[2016-11-24] MEDS ORDERED: PRINIVIL (ZESTRI5 MG PO (10:56)
[2016-11-24] MEDS ORDERED: MAGNESIUM OXID420 MG PO (10:57)
[2016-11-24] MEDS ORDERED: GLUCOPHAGE850 MG PO (10:59)
[2016-11-24] MEDS ORDERED: LOPRESSOR50 MG PO (10:59)
[2016-11-24] MEDS ORDERED: MORPHINE 15MG I15 MG PO (11:02)
[2016-11-24] MEDS ORDERED: NARCAN4 MG INH (11:03)
[2016-11-24] MEDS ORDERED: NICORETTE 2 MG2 MG PO (11:04)
[2016-11-24] MEDS ORDERED: NITROGLYCERIN0.4 MG SL (11:06)
[2016-11-24] MEDS ORDERED: NOVOLOG100 UNIT/M SUB-Q ×2 (11:09→11:10)
[2016-11-24] MEDS ORDERED: NOVOLIN-R100 UNIT/M SUB-Q (11:10)
[2016-11-24] MEDS ORDERED: OXYGEN M-15 INH (11:11)
[2016-11-24] MEDS ORDERED: LYRICA 150MG C150 MG PO (11:12)
[2016-11-24] MEDS ORDERED: ZANTAC (NON-FO150 MG PO (11:14)
[2016-11-24] MEDS ORDERED: SENNA S TABLET1 EACH PO (11:15)
[2016-11-24] MEDS ORDERED: SPIRIVA HANDIHA1 KIT INH (11:16)
[2016-11-24] MEDS ORDERED: SYMBICORT 16010.2 GM INH (11:16)
[2016-11-24] MEDS ORDERED: THERA GESIC CRE TOP (11:18)
[2016-11-24] MEDS ORDERED: VITAMIN B-12500 MCG PO (11:19)
[2016-11-24] MEDS ORDERED: VITAMIN D-32000 UNI1 PO (11:20)
[2016-11-24 12:04] LABS: BICARBONATE 31.9 mmol/L (18.0-23.0); PCO2 54 mmHg (35-45); PO2 83 mmHg (80-90)
[2016-11-25 07:38] LABS: ANION GAP 10.3 (10.0-19.0); CALCIUM 8.4 mg/dL (8.5-10.5); POTASSIUM 4.3 mMol/L (3.7-5.1)
[2016-11-25 08:13] LABS: BASOPHIL % 0.3 %; EOSINOPHIL % 0.2 %; HEMATOCRIT 35.8 % (37.0-53.0); HEMOGLOBIN 11.7 g/dL (11.0-16.0); IMMATURE GRANULOCYTE % 0.3 %; LYMPHOCYTE # 1.9 K/uL (0.8-4.0); LYMPHOCYTE % 16.1 %; MCH 30.7 pg (27.0-34.0); MCHC 32.7 gm/dL (32.0-36.5); MONOCYTE # 0.8 K/uL (0.0-1.0); MONOCYTE % 6.5 %; MPV 10.3 fl (9.4-12.4); NEUTROPHIL # (ANC) 9.2 K/uL (1.4-9.0); NEUTROPHIL % 76.6 %; NRBC % 0 /100WBC (0-0.00); PLATELET COUNT 235 K/uL (150-450); RBC 3.81 M/uL (3.50-5.50); RDW-CV 14.3 % (11.9-14.6)
[2016-11-25 12:41] LABS: BICARBONATE 31.7 mmol/L (18.0-23.0)
[2016-11-25 12:47] LABS: PCO2 66 mmHg (35-45); PO2 109 mmHg (80-90)
[2016-11-25 15:48] LABS: BICARBONATE 34.7 mmol/L (18.0-23.0); PCO2 56 mmHg (35-45)
[2016-11-25 15:49] LABS: PO2 66 mmHg (80-90)
[2016-11-26 04:13] LABS: BICARBONATE 35.9 mmol/L (18.0-23.0); PCO2 58 mmHg (35-45); PO2 67 mmHg (80-90)
[2016-11-26 05:51] LABS: BASOPHIL # 0.1 K/uL (0.0-0.2); BASOPHIL % 0.4 %; EOSINOPHIL # 0.1 K/uL (0.0-0.5); EOSINOPHIL % 1.2 %; HEMATOCRIT 35.2 % (37.0-53.0); HEMOGLOBIN 11.2 g/dL (11.0-16.0); IMMATURE GRANULOCYTE # 0.1 K/uL (0.0-0.3); IMMATURE GRANULOCYTE % 0.5 %; LYMPHOCYTE # 2.4 K/uL (0.8-4.0); LYMPHOCYTE % 21.3 %; MCH 29.9 pg (27.0-34.0); MCHC 31.8 gm/dL (32.0-36.5); MCV 94.1 fl (83.0-98.0); MONOCYTE # 0.8 K/uL (0.0-1.0); MONOCYTE % 7.3 %; MPV 9.5 fl (9.4-12.4); NEUTROPHIL # (ANC) 7.8 K/uL (1.4-9.0); NEUTROPHIL % 69.3 %; NRBC % 0 /100WBC (0-0.00); PLATELET COUNT 223 K/uL (150-450); RBC 3.74 M/uL (3.50-5.50); RDW-CV 14.4 % (11.9-14.6); WBC 11.3 K/uL (4.0-11.0)
[2016-11-26 06:08] LABS: ANION GAP 9.1 (10.0-19.0); CALCIUM 8.7 mg/dL (8.5-10.5); POTASSIUM 4.1 mMol/L (3.7-5.1)
[2016-11-27 05:47] LABS: BASOPHIL % 0.3 %; EOSINOPHIL # 0.2 K/uL (0.0-0.5); EOSINOPHIL % 1.6 %; HEMATOCRIT 34.1 % (37.0-53.0); HEMOGLOBIN 10.9 g/dL (11.0-16.0); IMMATURE GRANULOCYTE # 0.1 K/uL (0.0-0.3); IMMATURE GRANULOCYTE % 0.5 %; LYMPHOCYTE # 1.9 K/uL (0.8-4.0); LYMPHOCYTE % 18.6 %; MCH 29.9 pg (27.0-34.0); MCV 93.4 fl (83.0-98.0); MONOCYTE # 0.8 K/uL (0.0-1.0); MONOCYTE % 7.8 %; MPV 9.6 fl (9.4-12.4); NEUTROPHIL # (ANC) 7.1 K/uL (1.4-9.0); NEUTROPHIL % 71.2 %; NRBC % 0 /100WBC (0-0.00); PLATELET COUNT 215 K/uL (150-450); RBC 3.65 M/uL (3.50-5.50); RDW-CV 14.2 % (11.9-14.6)
[2016-11-27 05:58] LABS: CALCIUM 8.6 mg/dL (8.5-10.5); CREATININE 0.8 mg/dL (0.6-1.3)
[2016-11-28 04:24] LABS: ANION GAP 10.1 (10.0-19.0); CALCIUM 8.3 mg/dL (8.5-10.5); POTASSIUM 4.1 mMol/L (3.7-5.1)
[2016-11-28 22:09] LABS: BASOPHIL % 0.3 %; EOSINOPHIL # 0.1 K/uL (0.0-0.5); HEMATOCRIT 33.9 % (37.0-53.0); HEMOGLOBIN 11.1 g/dL (11.0-16.0); IMMATURE GRANULOCYTE # 0.1 K/uL (0.0-0.3); IMMATURE GRANULOCYTE % 0.6 %; LYMPHOCYTE # 1.7 K/uL (0.8-4.0); LYMPHOCYTE % 19.4 %; MCH 30.2 pg (27.0-34.0); MCHC 32.7 gm/dL (32.0-36.5); MCV 92.4 fl (83.0-98.0); MONOCYTE # 0.7 K/uL (0.0-1.0); MONOCYTE % 8.3 %; MPV 9.6 fl (9.4-12.4); NEUTROPHIL # (ANC) 6.1 K/uL (1.4-9.0); NEUTROPHIL % 70.4 %; NRBC % 0 /100WBC (0-0.00); PLATELET COUNT 253 K/uL (150-450); RBC 3.67 M/uL (3.50-5.50); RDW-CV 14.1 % (11.9-14.6); WBC 8.7 K/uL (4.0-11.0)
[2016-11-29 04:42] LABS: BASOPHIL # 0.1 K/uL (0.0-0.2); BASOPHIL % 0.5 %; EOSINOPHIL # 0.2 K/uL (0.0-0.5); EOSINOPHIL % 1.6 %; HEMATOCRIT 34.8 % (37.0-53.0); HEMOGLOBIN 11.2 g/dL (11.0-16.0); IMMATURE GRANULOCYTE # 0.1 K/uL (0.0-0.3); IMMATURE GRANULOCYTE % 0.5 %; LYMPHOCYTE # 1.7 K/uL (0.8-4.0); LYMPHOCYTE % 15.3 %; MCH 29.9 pg (27.0-34.0); MCHC 32.2 gm/dL (32.0-36.5); MCV 92.8 fl (83.0-98.0); MONOCYTE % 9.4 %; MPV 9.6 fl (9.4-12.4); NEUTROPHIL % 72.7 %; NRBC % 0 /100WBC (0-0.00); RBC 3.75 M/uL (3.50-5.50)
[2016-11-29 04:43] LABS: PLATELET COUNT 308 K/uL (150-450)
[2016-11-29 05:01] LABS: ALBUMIN 2.7 gm/dL (3.5-5.0); ANION GAP 11.1 (10.0-19.0); CALCIUM 8.5 mg/dL (8.5-10.5); POTASSIUM 4.1 mMol/L (3.7-5.1); TOTAL PROTEIN 6.4 g/dL (6.0-8.4)
[2016-11-29 05:02] LABS: TOTAL BILIRUBIN 0.6 mg/dL (0.0-1.5)
[2016-11-30 05:34] LABS: ANION GAP 7.9 (10.0-19.0); CALCIUM 8.8 mg/dL (8.5-10.5); CREATININE 1.1 mg/dL (0.6-1.3); POTASSIUM 3.9 mMol/L (3.7-5.1)
[2016-12-02 05:03] LABS: HEMATOCRIT 34.8 % (37.0-53.0); HEMOGLOBIN 11.4 g/dL (11.0-16.0); MCH 30.5 pg (27.0-34.0); MCHC 32.8 gm/dL (32.0-36.5); MPV 9.4 fl (9.4-12.4); PLATELET COUNT 311 K/uL (150-450); RBC 3.74 M/uL (3.50-5.50); RDW-CV 14.1 % (11.9-14.6); WBC 12.1 K/uL (4.0-11.0)
[2016-12-02 05:22] LABS: ALBUMIN 2.7 gm/dL (3.5-5.0); CALCIUM 8.6 mg/dL (8.5-10.5); CREATININE 1.8 mg/dL (0.6-1.3); TOTAL BILIRUBIN 0.6 mg/dL (0.0-1.5); TOTAL PROTEIN 6.5 g/dL (6.0-8.4)
[2016-12-02 05:33] LABS: ABSOLUTE NEUTROPHIL CT (ANC) 8.4 K/uL (1.4-9.0); BANDED NEUTROPHIL # 0.6 K/uL (0.0-0.1); BANDED NEUTROPHILS % 5 %; LYMPHOCYTE # 2.4 K/uL (0.8-4.0); LYMPHOCYTE % 20 %; MONOCYTE # 1.1 K/uL (0.0-1.0); SEGMENTED NEUTROPHIL # 7.7 K/uL (1.4-9.0); SEGMENTED NEUTROPHIL % 64 %
[2016-12-02 15:13] LABS: ANION GAP 10.1 (10.0-19.0); CALCIUM 8.5 mg/dL (8.5-10.5); CREATININE 1.5 mg/dL (0.6-1.3); POTASSIUM 4.1 mMol/L (3.7-5.1)
[2016-12-03 04:49] LABS: ANION GAP 11.1 (10.0-19.0); CALCIUM 8.1 mg/dL (8.5-10.5); CREATININE 1.3 mg/dL (0.6-1.3); POTASSIUM 4.1 mMol/L (3.7-5.1)
[2016-12-04 03:31] LABS: BASOPHIL # 0.1 K/uL (0.0-0.2); BASOPHIL % 0.6 %; EOSINOPHIL # 0.3 K/uL (0.0-0.5); EOSINOPHIL % 2.6 %; HEMATOCRIT 35.4 % (37.0-53.0); HEMOGLOBIN 11.6 g/dL (11.0-16.0); IMMATURE GRANULOCYTE # 0.1 K/uL (0.0-0.3); IMMATURE GRANULOCYTE % 0.5 %; LYMPHOCYTE # 1.9 K/uL (0.8-4.0); MCH 30.4 pg (27.0-34.0); MCHC 32.8 gm/dL (32.0-36.5); MCV 92.7 fl (83.0-98.0); MONOCYTE % 9.5 %; MPV 9.7 fl (9.4-12.4); NEUTROPHIL # (ANC) 6.8 K/uL (1.4-9.0); NEUTROPHIL % 67.8 %; NRBC % 0 /100WBC (0-0.00); PLATELET COUNT 329 K/uL (150-450); RBC 3.82 M/uL (3.50-5.50); RDW-CV 14.3 % (11.9-14.6)
[2016-12-04 03:44] LABS: ALBUMIN 2.8 gm/dL (3.5-5.0); CALCIUM 8.3 mg/dL (8.5-10.5); CREATININE 1.2 mg/dL (0.6-1.3); PHOSPHORUS 2.7 mg/dL (2.5-4.9)
[2016-12-04 10:14] LABS: BILIRUBIN URINE NEGATIVE (NEGATIVE); BLOOD URINE 250 /UL (NEGATIVE); GLUCOSE URINE NEGATIVE (NEGATIVE); KETONE URINE NEGATIVE (NEGATIVE); LEUKOCYTES URINE 100 /UL (NEGATIVE); NITRITE URINE NEGATIVE (NEGATIVE); PROTEIN URINE 30 mg/dL (NEGATIVE); TURBIDITY URINE 2+ (CLEAR); UROBILINOGEN URINE NORMAL (NORMAL)
[2016-12-04 10:18] LABS: COLOR URINE PINK (YELLOW)
[2016-12-04 10:22] LABS: BACTERIA URINE NEGATIVE (NEGATIVE); EPITHELIAL URINE 0-2 #/HPF (NEGATIVE); RBC URINE FULL FIELD #/HPF (NEGATIVE)
== END 2016-12-04 14:37 | disposition swing bed (61) | DRG 981 ==
LOC: GMED 05:07 → GPCU 06:11 → GICU 06:11 → GPCU 11-26 19:54
PROVIDERS: Emergency Medicine; Family Medicine; Internal Medicine; Internal Medicine Interventional Cardiology; ADMIT Internal Medicine
PROC: 5A1935Z Respiratory Ventilation, Less than 24 Consecutive Hours (ICD-10-PCS; principal; 2016-11-24)
PROC: 4A023N7 Measurement of Cardiac Sampling and Pressure, Left Heart, Percutaneous Approach (ICD-10-PCS; 2016-11-26)
PROC: B211YZZ Fluoroscopy of Multiple Coronary Arteries using Other Contrast (ICD-10-PCS; 2016-11-26)
PROC: B416YZZ Fluoroscopy of Right Renal Artery using Other Contrast (ICD-10-PCS; 2016-11-26)
PROC: 027237Z Dilation of Coronary Artery, Three Arteries with Four or More Drug-eluting Intraluminal Devices, Percutaneous Approach (ICD-10-PCS; 2016-11-28)
PROC: 4A033BC Measurement of Arterial Pressure, Coronary, Percutaneous Approach (ICD-10-PCS; 2016-11-28)
DX: T40.601A Poisoning by unspecified narcotics, accidental (unintentional), initial encounter (principal); I21.4 Non-ST elevation (NSTEMI) myocardial infarction; J96.21 Acute and chronic respiratory failure with hypoxia; J18.1 Lobar pneumonia, unspecified organism; J81.0 Acute pulmonary edema; J96.22 Acute and chronic respiratory failure with hypercapnia; N39.0 Urinary tract infection, site not specified; N17.9 Acute kidney failure, unspecified; E03.9 Hypothyroidism, unspecified; E11.9 Type 2 diabetes mellitus without complications; I10 Essential (primary) hypertension; I25.10 Atherosclerotic heart disease of native coronary artery without angina pectoris; J44.9 Chronic obstructive pulmonary disease, unspecified; M19.90 Unspecified osteoarthritis, unspecified site; M79.7 Fibromyalgia; Z87.891 Personal history of nicotine dependence; Z99.81 Dependence on supplemental oxygen; Z79.82 Long term (current) use of aspirin; I25.2 Old myocardial infarction; I95.89 Other hypotension; E53.8 Deficiency of other specified B group vitamins; R33.9 Retention of urine, unspecified; R41.0 Disorientation, unspecified; G47.33 Obstructive sleep apnea (adult) (pediatric)
CPT/HCPCS: A9270; A9500; C1725; C1760; C1769; C1874; C1887; C9113; C9600; J0280; J0744; J1335; J1644; J1650; J1940; J1956; J2020; J2185; J2250; J2270; J2310; J2405; J2704; J2785; J2930; J3010; J3246; J7030; J7040; J7050; J7120; Q9967

== ENCOUNTER → 2016-11-24 | Outpatient (CLI) | payer MEDICARE, OTHER ==
[~2016-11-24] MED LIST: ALLFEN400 MG PO; ASPIRIN (CHILDR81 MG PO; GLUCOPHAGE850 MG PO; ISORDIL10 MG PO; LASIX20 MG PO; LEVEMIR100 UNIT/1 SUB-Q; LEVOFLOXACIN PO; LEVOTHROID (S137 MCG PO; LIPITOR10 MG PO; LOPRESSOR50 MG PO; LYRICA 150MG C150 MG PO; MAGNESIUM OXID420 MG PO; MORPHINE 15MG I15 MG PO; NARCAN4 MG INH; NEURONTIN300 MG PO; NICORETTE 2 MG2 MG PO; NITROGLYCERIN0.4 MG SL; NOVOLIN-R100 UNIT/M SUB-Q; NOVOLOG100 UNIT/M SUB-Q; OXYGEN M-15 INH; PRINIVIL (ZESTRI5 MG PO; PROVENTIL OR V6.7 GM INH; SENNA S TABLET1 EACH PO; SPIRIVA HANDIHA1 KIT INH; SYMBICORT 16010.2 GM INH; THERA GESIC CRE TOP; TYLENOL325 MG PO; VITAMIN B-12500 MCG PO; VITAMIN D-32000 UNI1 PO; WELLBUTRIN SR150 MG PO; ZANTAC (NON-FO150 MG PO
== END | disposition disaster alternative care site (69) ==
LOC: GAMB 04:27
DX: J96.00 Acute respiratory failure, unspecified whether with hypoxia or hypercapnia (principal); E11.9 Type 2 diabetes mellitus without complications; J44.9 Chronic obstructive pulmonary disease, unspecified; R09.2 Respiratory arrest; R06.81 Apnea, not elsewhere classified; R07.89 Other chest pain; R06.00 Dyspnea, unspecified; Z95.818 Presence of other cardiac implants and grafts; Z88.2 Allergy status to sulfonamides
CPT/HCPCS: A0422; A0425; A0433; J2250; J7030